=== PATIENT | male | born 1995 | race African-American/Black ===

== ENCOUNTER 2024-01-20 18:54 | Inpatient (IN) | payer OTHER ==
[2024-01-20] MEDS ORDERED: MAG HYDROX/AL HYDROX/SIMETH 30 ML UNIT-DOSE CUP PO PRN (20:44)
[2024-01-20] MEDS ORDERED: BENZONATATE 200 MG CAPSULE PO PRN (20:44)
[2024-01-20] MEDS ORDERED: IBUPROFEN 600 MG TABLET (FP) PO PRN (20:44)
[2024-01-20] MEDS ORDERED: guaiFENesin 600 MG TABLET.ER (FP) PO PRN (20:44)
[2024-01-20] MEDS ORDERED: LOPERAMIDE HCL 2 MG CAPSULE PO PRN (20:44)
[2024-01-20] MEDS ORDERED: ACETAMINOPHEN 325 MG TABLET (FP) PO PRN (20:44)
[2024-01-20] MEDS ORDERED: POLYETHYLENE GLYCOL (HEALTHYLAX) 3350 17 GM PACKET PO PRN (20:44)
[2024-01-20] MEDS ORDERED: P-EPHED 60MG/TRIPROLIDI 2.5MG TABLET PO PRN (20:44)
[2024-01-20] MEDS ORDERED: BENZOCAINE/MENTHOL (CHLORASEPTIC ) LOZENGE MM PRN (20:44)
[2024-01-20] MEDS ORDERED: IBUPROFEN 400 MG TABLET (FP) PO PRN (20:44)
[2024-01-20] MEDS ORDERED: MAGNESIUM HYDROX 2400MG/30ML ORAL SUSPENSION 30 ML CUP PO PRN (20:44)
[2024-01-20 21:53] VITALS: BMI 31.3
[2024-01-20] MEDS: THIAMINE HCL 100 MG TABLET (FP) PO SCH (22:19)
[2024-01-20] MEDS: MELATONIN 5 MG TABLETS PO SCH (22:19)
[2024-01-21] MEDS: TUBERCULIN PPD 5 TU/0.1ML SYRINGE (IN PATIENT USE ONLY) ID ONE ×2 (06:51→10:16)
[2024-01-21] MEDS: PRENATAL VITAMINS W/ FOLIC ACID TABLET (FP) PO SCH (10:13)
[2024-01-21 12:09] LABS: HEMATOCRIT 42.1 % (35.4-49); HEMOGLOBIN 13.7 GM/dL (11.7-16.9); MCH 30.5 pg (25.7-33.7); MCHC 32.4 g/dl (32.0-35.9); MEAN PLT VOLUME 10.3 fl (7.5-11.1); PLATELET COUNT 211 10^3/uL (134-434); RBC 4.48 M/mm3 (4.00-5.60); RDW 13.8 % (11.9-15.9); WHITE BLOOD COUNT 5.9 K/mm3 (4.0-10.0)
[2024-01-21 12:22] LABS: POTASSIUM 4.2 mmol/L (3.5-5.1)
[2024-01-21 12:32] LABS: ALBUMIN 3.5 g/dl (3.4-5.0); BLOOD UREA NITROGEN 17.3 mg/dL (7-18); CALCIUM 8.6 mg/dL (8.5-10.1)
[2024-01-21 12:35] LABS: CREATININE 0.8 mg/dL (0.55-1.3)
[2024-01-21 12:37] LABS: TOT PROT 6.2 g/dl (6.4-8.2)
[2024-01-21 12:38] LABS: BILIRUBIN,TOTAL 0.8 mg/dL (0.2-1)
[2024-01-21] MEDS: EMTRICITABINE 200MG/TENOFOVIR 300MG PO SCH (16:40)
[2024-01-22 12:27] LABS: URINE APPEARANCE CLEAR; URINE BILIRUBIN NEGATIVE (NEGATIVE); URINE COLOR YELLOW; URINE GLUCOSE (UA) NEGATIVE (NEGATIVE); URINE KETONE NEGATIVE (NEGATIVE); URINE LEUK ESTERASE NEGATIVE (NEGATIVE); URINE NITRITE NEGATIVE (NEGATIVE); URINE PROTEIN NEGATIVE (NEGATIVE)
[2024-01-25] MEDS: EMTRICITABINE 200MG/TENOFOVIR 300MG PO SCH (12:27)
[2024-01-26] MEDS: MELATONIN 5 MG TABLETS PO SCH (21:25)
[2024-01-28] MEDS: SERTRALINE HCL 25 MG TABLET (FP) PO SCH (12:08)
[2024-01-28] MEDS ORDERED: ERGOCALCIFEROL (VIT D2) 50,000 UNIT (1.25 MG) CAPSULE PO SCH (14:00)
[2024-01-28] MEDS: ERGOCALCIFEROL (VIT D2) 50,000 UNIT (1.25 MG) CAPSULE PO SCH (14:13)
[2024-01-28] MEDS: SUVOREXANT 10 MG TABLET PO PRN (21:20)
[2024-01-29] MEDS: EMTRICITABINE 200MG/TENOFOVIR 300MG PO SCH (10:02)
[2024-01-29 12:20] LABS: PH,URINE 7.5 (5.0-8.0); URINE APPEARANCE CLEAR; URINE BILIRUBIN NEGATIVE (NEGATIVE); URINE COLOR YELLOW; URINE GLUCOSE (UA) NEGATIVE (NEGATIVE); URINE KETONE NEGATIVE (NEGATIVE); URINE LEUK ESTERASE NEGATIVE (NEGATIVE); URINE NITRITE NEGATIVE (NEGATIVE); URINE PROTEIN NEGATIVE (NEGATIVE); URINE UROBILINOGEN 0.2 mg/dL (0.2-1.0)
[2024-01-31] MEDS: SUVOREXANT 10 MG TABLET PO PRN (21:29)
[2024-02-01] MEDS: EMTRICITABINE 200MG/TENOFOVIR 300MG PO SCH (09:30)
[2024-02-02 06:38] VITALS: BP 128/77; PULSE 69; RESP 16; TEMP 98
[2024-02-02 12:55] LABS: HIV INTERPRETATION NEGATIVE (NEGATIVE)
== END 2024-02-02 12:26 | disposition left against medical advice (07) | DRG 770 ==
LOC: YASAS 18:54 → Y3E 21:52
PROVIDERS: ADMIT Allergy & Immunology; ATTEND Psychiatry & Neurology Pain Medicine
PROC: HZ42ZZZ Group Counseling for Substance Abuse Treatment, Cognitive-Behavioral (ICD-10-PCS; principal; 2024-01-20)
DX: F14.20 Cocaine dependence, uncomplicated (principal); F12.20 Cannabis dependence, uncomplicated; F15.10 Other stimulant abuse, uncomplicated; F19.282 Other psychoactive substance dependence with psychoactive substance-induced sleep disorder; F40.10 Social phobia, unspecified; F91.8 Other conduct disorders; Z91.199 Patient's noncompliance with other medical treatment and regimen due to unspecified reason; Z86.19 Personal history of other infectious and parasitic diseases
CPT/HCPCS: 36415; 80053; 80305; 81003; 85027; 86593; 86780; 87389; 87491; 87591; 87635; 87661; 87811; 93005; 93010